=== PATIENT | male | born 1970 | race Hispanic/Latino ===

== ENCOUNTER → 2025-08-01 | Outpatient (REF) | payer BC ==
[~2025-08-01] MED LIST: AMLODIPINE BESY10 MG PO; LIDOCAINE HCL 2% LOCAL INJ 5 ML SDV VIAL INJ ONE; OMEPRAZOLE40 MG PO; PROPOFOL IV EMULSION 0 ML IV ONE
== END ==
LOC: RAD 09:40 → EDSTATUS 08-08 13:00
PROVIDERS: ATTEND Internal Medicine Gastroenterology
DX: Z01.810 Encounter for preprocedural cardiovascular examination (principal); Z12.11 Encounter for screening for malignant neoplasm of colon; R12 Heartburn
CPT/HCPCS: 93005; J2003